=== PATIENT | female | born 1960 | race African-American/Black ===

== ENCOUNTER 2018-02-07 14:59 | Emergency (ER) | payer MEDICAID ==
[~2018-02-07] VITALS: Ht 170.2 cm; Wt 73.0 kg
[2018-02-07] MEDS ORDERED: MORPHINE SULFATE 4 MG/ML CPJ (NOT FOR IM USE) IV ONE ×2 (15:15→16:30)
[2018-02-07 17:48] VITALS: BP 173/114
== END 2018-02-07 18:03 | disposition home or self-care (01) ==
LOC: ER 14:59
DX: S43.401A Unspecified sprain of right shoulder joint, initial encounter (principal); I10 Essential (primary) hypertension; Z88.8 Allergy status to other drugs, medicaments and biological substances; W01.0XXA Fall on same level from slipping, tripping and stumbling without subsequent striking against object, initial encounter; Y93.01 Activity, walking, marching and hiking; Y92.89 Other specified places as the place of occurrence of the external cause; Y99.8 Other external cause status
CPT/HCPCS: 73030; 96374; 96376; 99284; J2270; Z7610